=== PATIENT | female | born 1990 | race Caucasian/White ===

== ENCOUNTER 2019-01-27 21:04 | Emergency (ER) | payer BC ==
[2019-01-27 21:19] VITALS: BP 125/80
--- NOTE | 2019-01-27 21:32 | UC ---
Throat Pain/Nasal Avinash HPI - HPI Summary HPI Summary: Travelling to visit family, awoke with a sore throat and sinus congestion this morning. Concerned about the week ahead. - History of Current Complaint Stated Complaint: SORE THROAT, CONGESTION Time Seen by Provider: 01/27/19 21:11 Hx Obtained From: Patient Hx Last Menstrual Period: 01/15 Onset/Duration: Sudden Onset, Lasting Hours Severity: Mild Pain Intensity: 3 Cough: None Associated Signs & Symptoms: Positive: Sinus Discomfort - Epiglottits Risk Factors Epiglottis Risk Factors: Negative - Allergies/Home Medications Allergies/Adverse Reactions: Allergies Allergy/AdvReac Type Severity Reaction Status Date / Time hydrocodone Allergy Severe vomitting Verified 01/27/19 21:19 Home Medications: Home Medications ALPRAZolam [Xanax] 0.5 mg PO SEE INSTRUCTIONS 01/27/19 [History Confirmed ] PMH/Surg Hx/FS Hx/Imm Hx Previously Healthy: Yes Psychological History: Anxiety - Surgical History Surgical History: None - Family History Known Family History: Positive: Non-Contributory - Social History Occupation: Employed Full-time Alcohol Use: Daily Substance Use Type: None Smoking Status (MU): Heavy Every Day Tobacco Smoker Review of Systems All Other Systems Reviewed And Are Negative: Yes Constitutional: Positive: Fatigue Skin: Positive: Negative Eyes: Positive: Negative ENT: Positive: Sinus Congestion Respiratory: Positive: Negative Cardiovascular: Positive: Negative Gastrointestinal: Positive: Negative Genitourinary: Positive: Negative Motor: Positive: Negative Neurovascular: Positive: Negative Musculoskeletal: Positive: Myalgia Neurological: Positive: Headache Psychological: Positive: Negative Is Patient Immunocompromised?: No Physical Exam Triage Information Reviewed: Yes Appearance: Well-Appearing, No Pain Distress Vital Signs: Initial Vital Signs Temp 99.1 F 01/27/19 21:14 Pulse 86 01/27/19 21:14 Resp 18 01/27/19 21:14 BP 125/80 01/27/19 21:14 Pulse Ox 100 01/27/19 21:14 Eyes: Positive: Conjunctiva Clear ENT: Positive: Pharyngeal erythema, TMs normal - cerumen left ear (dry). Negative: Tonsillar swelling, Tonsillar exudate Neck: Positive: Supple, Nontender, No Lymphadenopathy Respiratory: Positive: Lungs clear, Normal breath sounds Cardiovascular: Positive: RRR, No Murmur Musculoskeletal Exam: Normal Neurological Exam: Normal Psychological Exam: Normal Skin Exam: Normal Throat Pain/Nasal Course/Dx - Course Course Of Treatment: symptomatic treatment of viral uri - Differential Dx/Diagnosis Differential Diagnosis/HQI/PQRI: URI Provider Diagnosis: URI, acute Discharge ED - Sign-Out/Discharge Documenting (check all that apply): Patient Departure All imaging exams completed and their final reports reviewed: No Studies - Discharge Plan Condition: Good Disposition: HOME Patient Education Materials: Upper Respiratory Infection (ED) Referrals: No Primary Care Phys,NOPCP [Primary Care Provider] - Additional Instructions: Your symptoms suggest a viral illness. Some symptomatic approaches include: ~zinc lozenges can be used to decrease the duration of illness. Some medical evidence supports this. Zinc lozenges are available over the counter (cold-eez) . ~use saline spray to help to drain the sinuses, also over the counter. Flonase is a steroid spray which can help to promote sinus drainage. ~Use of guaifensin 600mg twice daily and pseudoephedrine 30mg 2 or three times per day can help to relieve sinus symptoms. ~good handwashing prevents the spread of most respiratory illnesses within families. ~follow up if you develop fever, progressive cough and shortness of breath, or develop increasing ear pain. - Billing Disposition and Condition Condition: GOOD Disposition: Home
== END 2019-01-27 21:50 | disposition home or self-care (01) ==
LOC: UCEAST 21:04
DX: J06.9 Acute upper respiratory infection, unspecified (principal); F17.290 Nicotine dependence, other tobacco product, uncomplicated; R53.83 Other fatigue; M79.10 Myalgia, unspecified site; R51 Headache; Z88.6 Allergy status to analgesic agent
CPT/HCPCS: 99201; G0463